=== PATIENT | female | born 1990 | race Caucasian/White ===

== ENCOUNTER 2021-04-12 11:55 | Outpatient (CLI) | payer OTHER ==
[~2021-04-12] VITALS: Ht 165.1 cm; Wt 108.4 kg
[2021-04-12 15:50] LABS: HEMOGLOBIN 12.2 gm/dl (12.3-15.3); WHITE BLOOD COUNT 8.3 K/UL (4.5-11.0)
[2021-04-12 16:12] LABS: BUN/CREATININE RATIO 12 (0-10)
[2021-04-13] MEDS ORDERED: PHENERGAN 25 MG25 M1 PO (11:05)
== END 2021-04-12 22:52 | disposition home or self-care (01) ==
LOC: GENOP 11:55
PROVIDERS: Obstetrics & Gynecology
DX: O21.2 Late vomiting of pregnancy (principal); O99.891 Other specified diseases and conditions complicating pregnancy; R19.7 Diarrhea, unspecified; Z3A.36 36 weeks gestation of pregnancy; O99.333 Smoking (tobacco) complicating pregnancy, third trimester; F17.210 Nicotine dependence, cigarettes, uncomplicated; O99.343 Other mental disorders complicating pregnancy, third trimester; F41.9 Anxiety disorder, unspecified; O99.353 Diseases of the nervous system complicating pregnancy, third trimester; G43.909 Migraine, unspecified, not intractable, without status migrainosus; F32.9 Major depressive disorder, single episode, unspecified
CPT/HCPCS: 36415; 59025; 80053; 81001; 82239; 84550; 85007; 85027; 96360; 96361; 96365; 96367; J0696; J2405; J2550

== ENCOUNTER 2021-04-28 18:34 | Inpatient (IN) | payer OTHER ==
[~2021-04-28] VITALS: Ht 165.1 cm; Wt 108.0 kg
[~2021-04-28 18:34] MED LIST: PHENERGAN 25 MG25 M1 PO
[2021-04-28 19:53] LABS: HEMOGLOBIN 13.1 gm/dl (12.3-15.3); RED BLOOD COUNT 4.38 M/UL (4.00-5.10); WHITE BLOOD COUNT 9.3 K/UL (4.5-11.0)
[2021-04-28 20:13] LABS: BUN/CREATININE RATIO 16 (0-10)
[2021-04-29] MEDS ORDERED: DOCUSATE SODIU250 MG PO (15:26)
[2021-04-29] MEDS ORDERED: IBUPROFEN600 MG PO (15:26)
[2021-04-29] MEDS ORDERED: FEROSUL325 MG PO (15:26)
[2021-04-30 06:23] LABS: HEMOGLOBIN 11.7 gm/dl (12.3-15.3)
== END 2021-04-30 17:35 | disposition home or self-care (01) | DRG 807 ==
LOC: GENOP 18:34 → OB 18:51
PROVIDERS: Obstetrics & Gynecology; ADMIT Obstetrics & Gynecology
PROC: 4A1HXCZ Monitoring of Products of Conception, Cardiac Rate, External Approach (ICD-10-PCS; 2021-04-28)
PROC: 10E0XZZ Delivery of Products of Conception, External Approach (ICD-10-PCS; principal; 2021-04-29)
DX: O14.94 Unspecified pre-eclampsia, complicating childbirth (principal); Z37.0 Single live birth; Z3A.38 38 weeks gestation of pregnancy; Z90.49 Acquired absence of other specified parts of digestive tract; Z20.822 Contact with and (suspected) exposure to COVID-19
CPT/HCPCS: 80053; 81001; 82570; 82800; 84156; 84550; 85014; 85018; 85025; 90715; J0595; J2590; J2795; J3010; J7120; U0002

== ENCOUNTER 2021-05-14 20:23 | Emergency (ER) | payer OTHER ==
[~2021-05-14 20:23] MED LIST changes: +DOCUSATE SODIU250 MG PO; +FEROSUL325 MG PO; +IBUPROFEN600 MG PO
[2021-05-15 00:16] LABS: HEMOGLOBIN 13.6 gm/dl (12.3-15.3); RED BLOOD COUNT 4.65 M/UL (4.00-5.10); WHITE BLOOD COUNT 10.5 K/UL (4.5-11.0)
[2021-05-15 00:26] LABS: BUN/CREATININE RATIO 14 (0-10)
[2021-05-15] MEDS ORDERED: DICLOXACILLIN500 MG PO (00:40)
[2021-05-15] MEDS ORDERED: IBUPROFEN400 MG PO (00:40)
== END 2021-05-15 01:00 | disposition home or self-care (01) ==
LOC: ER1 20:23
PROVIDERS: Physician Assistant
DX: O91.22 Nonpurulent mastitis associated with the puerperium (principal); Z20.822 Contact with and (suspected) exposure to COVID-19
CPT/HCPCS: 80053; 81001; 83605; 85025; 85652; 86140; 87086; 93005; 99284; U0002

== ENCOUNTER → 2021-05-23 | Outpatient (CLI) | payer OTHER ==
[~2021-05-23] MED LIST changes: +DICLOXACILLIN500 MG PO; +IBUPROFEN400 MG PO
== END ==
LOC: EXRD 11:19
DX: R60.0 Localized edema (principal)
CPT/HCPCS: 93970

== ENCOUNTER 2022-04-03 16:05 | Emergency (ER) | payer OTHER ==
[2022-04-03 17:10] LABS: HEMOGLOBIN 12.9 gm/dl (12.3-15.3); RED BLOOD COUNT 4.65 M/UL (4.00-5.10); WHITE BLOOD COUNT 2.5 K/UL (4.5-11.0)
[2022-04-03 17:34] LABS: BUN/CREATININE RATIO 12 (0-10)
[2022-04-03] MEDS ORDERED: ZITHROMAX250 MG PO (20:56)
[2022-04-03] MEDS ORDERED: BENZONATATE200 MG PO (20:56)
[2022-04-03] MEDS ORDERED: MEDROL4 MG PO (20:56)
== END 2022-04-03 21:08 | disposition home or self-care (01) ==
LOC: ER1 16:05
PROVIDERS: Nurse Practitioner
DX: U07.1 COVID-19 (principal); F17.210 Nicotine dependence, cigarettes, uncomplicated; E66.9 Obesity, unspecified; Z90.49 Acquired absence of other specified parts of digestive tract
CPT/HCPCS: 0240U; 70450; 71045; 80053; 82550; 82553; 84484; 85025; 93005; 99284; J2405; J2930